=== PATIENT | male | born 1975 | race Caucasian/White ===

== ENCOUNTER → 2024-10-05 | Outpatient (CLI) | payer BC ==
[2024-10-05 15:58] VITALS: BP 120/86; PULSE 118; RESP 20; TEMP 98
--- NOTE | 2024-10-05 17:21 | P.SLEEP ---
History of Present Illness DATE: 10/05/2024 CONSULTATION/NEW PATIENT EVALUATION HISTORY OF PRESENT ILLNESS/SLEEP-WAKE EVALUATION: 49-year-old gentleman had b een evaluated in the sleep center for possible obstructive sleep apnea hypopnea syndrome. SLEEP SCHEDULE: Usually sleep schedule from 10 PM to 6 AM on weekdays and from 1011 PM to 7 AM on weekend. FALLING ASLEEP: No problems with falling asleep. DURING SLEEP: Patient snores loudly and wakes up from sleep 3 times. No history of hypnogogical hallucinations, sleep paralysis, or cataplexy. DURING THE DAY/WAKE STATE: Patient may feel some sleepiness during the day. Selden sleepiness scale is borderline 9. Usually patient does not take naps. PAST MEDICAL HISTORY: Asthma, hyperlipidemia, acid reflux. PAST SURGICAL HISTORY: None. MEDICATIONS: Have been reviewed, please see below, additionally albuterol. SOCIAL HISTORY: Please see below. FAMILY HISTORY: Please see below. REVIEW OF SYSTEMS: Loud snoring, awakenings from sleep. No fevers. No double vision. No recent chest pain. No shortness of breath. No abdominal pain. No bleeding episodes. No blood in urine. No seizure episodes. PHYSICAL EXAMINATION: GENERAL: A pleasant patient without any distress. VITAL SIGNS: Please see below, weight 218.4 pounds, BMI 33.6. HEENT: PERRLA, EOMI. Evaluation of oropharynx showed tongue protrudes midline, low position of soft palate Mallampati 3. NECK: Supple. No JVD. Thyroid is not palpable. 16-3/4 inches in circumference. LUNGS: Clear to percussion and to auscultation. Good air exchange. No wheezing or rhonchi. HEART: S1, S2 regular. No murmurs, gallops or rubs. ABDOMEN: Soft and nontender. Bowel sounds are present. No organomegaly appreciated. EXTREMITIES: No clubbing or cyanosis. COLLISION TECHNICIAN: Awake, alert, and oriented x3. Cranial nerves 2 to 7 intact. There is no fasciculation or atrophy noted. No focal deficits observed. ASSESSMENT: 1. Loud snoring, awakenings from sleep, low position of soft palate Mallampati 3, some sleepiness by borderline Selden Sleepiness Scale 9. 2. Asthma. 3. Hyperlipidemia. 4. Acid reflux. 5. Mild obesity, BMI 33.6. PLAN: 1. Home sleep apnea test for evaluation of patient's breathing during sleep. 2. Following plan after reading sleep study. 3. Preferable position during sleep on the side. 4. No driving if patient feels any sleepiness. Patient is aware of civil and criminal liability for unsafe driving. 5. Sleep hygiene with regular sleep time for at least 7.5-8 hours. 6. Watching weight. Thank you very much for referring this patient for consultation. Sincerely, Vu Cortez MD, PhD, FAASM. Diplomat of [place] [employer], Sleep Medicine Board by [place] [employer] [employer] T[employer] [facility] [place] cc: Dennise Eddy MD Past Medical History Past Medical History: Asthma, GERD/Reflux, Hyperlipidemia Additional Past Medical History / Comment(s): Snoring History of Any Multi-Drug Resistant Organisms: None Reported Past Surgical History: No Surgical Hx Reported Past Psychological History: No Psychological Hx Reported Smoking Status: Never smoker Past Alcohol Use History: Occasional Past Drug Use History: None Reported - Past Family History Father Family Medical History: Cancer, Hyperlipidemia Additional Family Medical History / Comment(s): Snoring (lung cancer). (Other family cancer hx = mom and sister w/lung cancer, sister with breast cancer and brother w/prostate cancer) (also 2 brothers w/asthma) Mother Family Medical History: Cancer, COPD Additional Family Medical History / Comment(s): Lung cancer, COPD Medications and Allergies Home Medications Medication Instructions Recorded Confirmed Type Omeprazole 20 mg PO DAILY 10/05/24 10/05/24 History Rosuvastatin Calcium [Crestor] 5 mg PO DAILY 10/05/24 10/05/24 History Physical Exam Vitals: Vital Signs Temp Pulse Resp BP Pulse Ox 10/05/24 15:54 98.0 F 118 H 20 120/86 96 Intake and Output 10/05/24 10/05/24 10/05/24 06:59 14:59 22:59 Other: Weight 98.997 kg Sleep Note - Sleep Data ESS Total: 9 - Sleep Note Sleep Note: Temperature: 98.0 F Pulse Rate: 118 Respiratory Rate: 20 Blood Pressure: 120/86 SpO2: 96 Height: 5 ft 7.5 in Weight: 98.997 kg BMI: Neck Circumference: 16.7
== END ==
LOC: 3 N SLEEP 15:12
PROVIDERS: ATTEND Internal Medicine
DX: E66.9 Obesity, unspecified (principal); E78.5 Hyperlipidemia, unspecified; K21.9 Gastro-esophageal reflux disease without esophagitis; J45.909 Unspecified asthma, uncomplicated; Z68.33 Body mass index [BMI] 33.0-33.9, adult
CPT/HCPCS: 99211

== ENCOUNTER → 2024-10-13 | Outpatient (CLI) | payer BC ==
--- NOTE | 2024-10-18 16:08 | P.PCN ---
Description of Procedure: CLINICAL: A home sleep apnea test has been done for confirmation of possible obstructive sleep apnea-hypopnea syndrome. DESCRIPTION OF PROCEDURE: RESULTS: Recording time was 7 hours 49 minutes. Evaluation time was 7 hours 37 minutes. Evaluation time is sufficient for making conclusion about results of the test. Raw data of sleep recording has been reviewed and is adequate. Respiratory channel showed 75 apneas and 132 hypopneas. Apnea-hypopnea index was 27.1 per hour, which included obstructive apnea index 4.6, central apnea index 4.7, mixed apnea index 0.6. Pulse rate in the range between minimum 48, maximum 119, average 64 by computer calculation. Lowest desaturation was 86%. IMPRESSION: 1. Moderate, close to severe obstructive and central sleep apnea hypopnea syndrome. Please see other impressions from consultation. PLAN: 1. The patient should have PAP titration for correction of respiratory abnormallities during sleep. 2. Sleep hygiene with regular time in bed for at least 8 hours. 3. Watching weight. 4. No driving if feeling any sleepiness. Thank you very much for allowing me to participate in the management of your patient. Sincerely, Vu Cortez MD, PhD, FAASM Diplomat of [employer] Sleep Medicine Board of [employer] [facility] Nursing [facility] [place] cc: Dennise Eddy MD
== END ==
LOC: 3 N SLEEP 11:01
PROVIDERS: ATTEND Internal Medicine
DX: G47.33 Obstructive sleep apnea (adult) (pediatric) (principal); G47.31 Primary central sleep apnea

== ENCOUNTER 2025-02-15 19:44 | Outpatient (CLI) | payer BC ==
--- NOTE | 2025-02-28 10:56 | P.PCN ---
Description of Procedure: CLINICAL: Titration with positive air pressure has been done for correction of respiratory abnormalities during sleep. DESCRIPTION OF PROCEDURE: The standard montage for clinical polysomnography included the electroencephalogram, the electrocardiogram, the mentalis surface electromyography and Lead II cardiography. The respiratory battery consisted of measurements of nasal /buccal air flow, pressure transducer measurements from the nose, thoracic and /or abdominal effort and intercostal surface electromyography. Video monitoring has been done to check for any parasomnia events. Nocturnal oxyhemoglobin saturations were obtained by finger oximetry. Step-romeo titration with positive airway pressure was utilized to control respiratory events. Raw data of sleep recording has been reviewed and is adequate. RESULTS: Sleep efficiency was decreased to 76.6%. Latency to sleep onset was prolonged to 45.0 minutes.]. Sleep architecture showed stage N1 was extremely short 0.8%, Delta sleep was absent 0%, REM sleep was decreased to 16.8%. Heart rate was minimum 52 BPM, maximum 61 BPM, average 55 BPM. EMG showed 0 periodic limb movements per hour with 0 micriarousals per hour. PAP titration have been done with CPAP up to the pressure 6 cm H2O. The best results were at the pressure 6 cm H2O. Apnea hypopnea index reduced to 0. IMPRESSION: 1. Obstructive sleep apnea hypopnea syndrome on controle with PAP treatment. 2. No significant periodic limb movements have been documented. Please see other impressions from consultation. PLAN: 1. The patient will have treatment with positive air pressure equipment with the level of pressure [] cm H2O and should use it every night for the whole night. 2. Watching and losing weight. 3. Sleep hygiene with regular time in bed for at least 8 hours. 4. No driving if feeling any sleepiness. 5. I will see the patient for follow up visit to explain the results of the test, recommendations, check compliance with treatment and make any necessary adjustment related to mask fitting, pressure and humidification. Thank you very much for allowing me to participate in the management of your patient. Sincerely, Vu Cortez MD, PhD, FAASM Diplomat of [place] [employer] Sleep Medicine Board of [place] [employer] Pro[employer] [facility] [place] cc: Dennise Eddy MD
== END 2025-02-16 05:20 | disposition home or self-care (01) ==
LOC: 3 N SLEEP 19:44
PROVIDERS: ATTEND Internal Medicine
DX: G47.33 Obstructive sleep apnea (adult) (pediatric) (principal); Z99.89 Dependence on other enabling machines and devices
CPT/HCPCS: 95811